=== PATIENT | male | born 1950 | race Caucasian/White ===

== ENCOUNTER 2017-11-09 08:22 | Day surgery (SDC) | payer OTHER, BC ==
--- OUTSIDE RECORDS SUMMARY | 2017-11-09 08:33 | XMS REPORT ---
:1950 [facility] Address [address] [place] [address] Care Team Providers Name Role Phone UMA KELLY Primary Care Provider Unavailable UMA KELLY Unavailable Unavailable Problems This patient has no known problems. Allergies, Adverse Reactions, Alerts This patient has no known allergies or adverse reactions. Medications This patient has no known medications. Results Test Description Test Time Test Comments Text Results Atomic Results Result Comments Lipid Profile 2016-08-14 21:19:00 Test Item Value Reference Range Comments Cholesterol (test code=CHOL) 170 mg/dL 0-200 Triglycerides (test code=TRIG) 104 mg/dL 9-200 HDL (test code=HDL) 35 mg/dL 40-60 Chol/HDL (test code=CHOLPHDL) 4.9 Ratio 0.0-5.0 LDL, Calculated (test 114 mg/dL 0-130 (NOTE)RISK OF HEART DISEASEPublished code=LDLC) by [place] Heart AssociationAnalyte Optimal Boderline Increased RiskCHOL <200 200-239 >240TRIG <150 150-199 >200HDL Male: >60 <40HDL Female: >60 <50LDL <100 130-159 >160LDL NEAR OPTIMAL IS 100-129 VLDL (test code=VLDL) 21 mg/dL 5-40 LDL/HDL (test code=LDLPHDL) 3 Comprehensive Metabolic [id number] 21:19:00 Test Item Value Reference Range Comments Sodium (test code=NA) 138 mmol/L 135-145 Potassium (test code=K) 4.4 mmol/L 3.5-5.1 Chloride (test code=CL) 102 mmol/L 98-105 Carbon Dioxide (test 25 mmol/L 22-29 code=CO2) Glucose (test code=GLU) 103 mg/dL 70-115 Blood Urea Nitrogen 11 mg/dL 8-23 (test code=BUN) Creatinine (test 1.0 mg/dL 0.7-1.2 code=CREAT) Calcium (test code=CA) 9.9 mg/dL 8.3-10.5 Prot Total (test 6.9 g/dL 6.4-8.3 code=TP) Albumin (test code=ALB) 4.4 g/dL 3.5-5.2 A/G Ratio (test 1.8 Ratio code=AGRATIO) Globulin (test 2.5 2.9-3.1 code=GLOB) Bili Total (test 0.9 mg/dL 0.1-0.9 code=TBIL) Alk Phos (test 64 U/L 40-129 code=APHOS) AST (test code=AST) 18 U/L 1-40 ALT (test code=ALT) 20 U/L 1-41 BUN/Creatinine Ratio 11.0 (test code=BCRATIO) Anion Gap (test 11 mmol/L 7-16 code=AGAP) Estimated GFR (test >60 mL/min/1.73m2 eGFR (estimated Glomerular code=GFR) Filtration Rate) is an estimated value,calculated from the patient's serum creatinine using the MDRD equation.It is NOT the patient's actual GFR. The eGFR provides a more clinicallyuseful measure of kidney disease than serum creatinine alone.This calculation takes sex and race into account, if the informationis provided. If the race is not provided, and the patient isAfrican-Burmese, multiply by 1.212. If sex is not provided, and thepatient is female, multiply by 0.742. Results for patients <18 years ofage have not been validated by the MDRD study and should be interpretedwith caution.eGFR Result Interpretation:eGFR > or=60 is in the Normal RangeeGFR < 60 may mean kidney diseaseeGFR < 15 may mean kidney failureRanges recommended by the National Kidney Foundation,http://nkdep.nih .gov CBC with [id number] 19:09:00 Test Item Value Reference Range Comments WBC (test code=WBC) 8.6 K/cumm 4.4-10.5 RBC (test code=RBC) 4.68 M/cumm 4.10-5.70 Hemoglobin (test code=HGB) 15.8 gm/dL 13.4-17.4 Hematocrit (test code=HCT) 46.5 % 38.7-52.0 MCV (test code=MCV) 99.3 fL 80-100 MCH (test code=MCH) 33.7 pg 27.0-32.5 MCHC (test code=MCHC) 33.9 g/dL 32.0-37.5 RDW (test code=RDW) 13.7 % 11.5-14.5 Platelet Count (test code=PLTCT) 210 K/cumm 140-440 MPV (test code=MPV) 10.1 fL Diff Method (test code=DIFFM) Auto Neutrophil (test code=NEUT) 63.6 % 36-70 Lymphocyte (test code=LYMPH) 28.2 % 12-44 Monocyte (test code=MONO) 5.0 % 0-11 Eosinophil (test code=EOS) 2.4 % 0-7 Basophil (test code=BASO) 0.8 % 0-2 Neutro Abs (test code=ANEUT) 5.4 K/cumm 1.6-7.4 Lymph Abs (test code=ALYMPH) 2.4 K/cumm 0.5-4.6 [place] Abs (test code=AMONO) 0.4 K/cumm 0.0-1.2 Eos Abs (test code=AEOS) 0.21 K/cumm 0.00-0.74 Baso Abs (test code=ABASO) 0.1 K/cumm 0.00-0.21
[2017-11-09] MEDS ORDERED: Ringers Lactate 1,000 ML IV ONE (09:26)
[2017-11-09] MEDS ORDERED: LIDOCAINE 1% MPF 5 ML VIAL ONE (11:44)
[2017-11-09] MEDS ORDERED: PROPOFOL 200 MG/20 ML VIAL IV ONE ×2 (11:44)
--- NOTE | 2017-11-09 12:01 | ENDO RPT ---
[address], [address] COLONOSCOPY PROCEDURE REPORT EXAM DATE: 11/09/2017 PATIENT NAME: Chin Garcia MR #: [id number] BIRTHDATE: 1950 ATTENDING: Carlos Longo Dr STATUS: outpatient MEDICAL STAFFING COORDINATOR: Krystyna Presley and Luciana Valencia RN INDICATIONS: The patient is a 67 yr old Male here for a colonoscopy due to colon cancer screening PROCEDURE PERFORMED: Colonoscopy with snare polypectomy and Colon w/ endoclip MEDICATIONS: Per Anesthesia. ESTIMATED BLOOD LOSS: None CONSENT: The patient understands the risks and benefits of the procedure and understands that these risks include, but are not limited to: sedation, allergic reaction, infection, perforation and/or bleeding. Alternative means of evaluation and treatment include, among others: physical exam, x-rays, and/or surgical intervention. The patient elects to proceed with this endoscopic procedure. DESCRIPTION OF PROCEDURE: During intra-op preparation period all mechanical medical equipment was checked for proper function. Hand hygiene and appropriate measures for infection prevention was taken. Procedure, possible complications, alternatives including, but not limited to possibility of bleeding, perforation, tear, infection, sepsis, need for surgery, need for blood transfusion, were explained to the patient. After the risks, benefits and alternatives of the procedure were thoroughly explained, Informed consent was verified, confirmed and timeout was successfully executed by the treatment team. The patient was placed in the left lateral position. A digital rectal exam was performed and revealed no abnormalities of the rectum. After appropriate level of anesthesia, the scope was passed. The [id number] ([id number]) endoscope was introduced through the anus and advanced to the terminal ileum which was intubated for a short distance. The quality of the prep was good. The instrument was then slowly withdrawn as the colon was fully examined. Scope withdrawal time was 6 minutes. COLON FINDINGS: A pedunculated polyp measuring 1 cm in size was found in the sigmoid colon. A polypectomy was performed using snare cautery. Mild diverticulosis was noted in the sigmoid colon. Moderate sized internal hemorrhoids were found. Retroflexed views revealed medium hemorrhoids. The scope was then completely withdrawn from the patient and the procedure terminated. ADVERSE EVENTS: There were no complications. IMPRESSIONS: 1. 1 cm pedunculated polyp in the sigmoid colons/p snare 2. Mild diverticulosis in the sigmoid colon 3. Moderate sized internal hemorrhoids 4. Intubation to terminal ileum RECOMMENDATIONS: 1. await biopsy results 2. avoid NSAIDS for 2 weeks RECALL: Return in 1 year(s) for Colonoscopy. Carlos Longo Dr eSigned: Carlos Longo Dr 11/09/2017 12:00 PM cc: Joni Washburn CPT CODES: ICD9 CODES: 211.3 Benign neoplasm of colon PATIENT NAME: Chin Garcia MR#: [id number]
--- NOTE | 2017-11-09 12:03 | ENDO RPT ---
[address], [address] COLONOSCOPY PROCEDURE REPORT EXAM DATE: 11/09/2017 PATIENT NAME: Chin Garcia MR #: [id number] BIRTHDATE: 1950 ATTENDING: Carlos Longo Dr STATUS: outpatient SAFE DEPOSIT ATTENDANT: Krystyna Presley and Luciana Valencia RN INDICATIONS: The patient is a 67 yr old Male here for a colonoscopy due to colon cancer screening PROCEDURE PERFORMED: Colonoscopy with snare polypectomy and Colon w/ endoclip MEDICATIONS: Per Anesthesia. ESTIMATED BLOOD LOSS: None CONSENT: The patient understands the risks and benefits of the procedure and understands that these risks include, but are not limited to: sedation, allergic reaction, infection, perforation and/or bleeding. Alternative means of evaluation and treatment include, among others: physical exam, x-rays, and/or surgical intervention. The patient elects to proceed with this endoscopic procedure. DESCRIPTION OF PROCEDURE: During intra-op preparation period all mechanical medical equipment was checked for proper function. Hand hygiene and appropriate measures for infection prevention was taken. Procedure, possible complications, alternatives including, but not limited to possibility of bleeding, perforation, tear, infection, sepsis, need for surgery, need for blood transfusion, were explained to the patient. After the risks, benefits and alternatives of the procedure were thoroughly explained, Informed consent was verified, confirmed and timeout was successfully executed by the treatment team. The patient was placed in the left lateral position. A digital rectal exam was performed and revealed no abnormalities of the rectum. After appropriate level of anesthesia, the scope was passed. The [id number] ([id number]) endoscope was introduced through the anus and advanced to the terminal ileum which was intubated for a short distance. The quality of the prep was good. The instrument was then slowly withdrawn as the colon was fully examined. Scope withdrawal time was 6 minutes. COLON FINDINGS: A pedunculated polyp measuring 1 cm in size was found in the sigmoid colon. A polypectomy was performed using snare cautery. Diverticula scattered throughout the colon, predominantly in the sigmoid colon. Moderate sized internal hemorrhoids were found. Retroflexed views revealed medium hemorrhoids. The scope was then completely withdrawn from the patient and the procedure terminated. ADVERSE EVENTS: There were no complications. IMPRESSIONS: 1. 1 cm pedunculated polyp in the sigmoid colons/p snare 2. Diverticula scattered throughout the colon, predominantly in the sigmoid colon 3. Moderate sized internal hemorrhoids 4. Intubation to terminal ileum RECOMMENDATIONS: 1. await biopsy results 2. avoid NSAIDS for 2 weeks RECALL: Return in 1 year(s) for Colonoscopy. Carlos Longo Dr eSigned: Carlos Longo Dr 11/09/2017 12:03 PM Revised: 11/09/2017 12:03 PM cc: Joni Washburn CPT CODES: ICD9 CODES: 211.3 Benign neoplasm of colon PATIENT NAME: Chin Garcia MR#: [id number]
== END 2017-11-09 12:35 | disposition home or self-care (01) ==
LOC: OR 08:22
PROVIDERS: ATTEND Internal Medicine Gastroenterology
PROC: 0DBN8ZX Excision of Sigmoid Colon, Via Natural or Artificial Opening Endoscopic, Diagnostic (ICD-10-PCS; principal; 2017-11-09 12:30)
DX: Z12.11 Encounter for screening for malignant neoplasm of colon (principal); D12.5 Benign neoplasm of sigmoid colon; K57.10 Diverticulosis of small intestine without perforation or abscess without bleeding; K64.8 Other hemorrhoids; Z88.6 Allergy status to analgesic agent; F17.210 Nicotine dependence, cigarettes, uncomplicated; I25.2 Old myocardial infarction; I25.10 Atherosclerotic heart disease of native coronary artery without angina pectoris; C61 Malignant neoplasm of prostate
CPT/HCPCS: 88305